=== PATIENT | male | born 1950 | race Caucasian/White ===

== ENCOUNTER 2018-12-13 15:12 | Emergency (ER) | payer MEDICARE, BC ==
[~2018-12-13] VITALS: Ht 172.7 cm; Wt 83.0 kg
[~2018-12-13 15:12] MED LIST: ANAS1TAB8 PO; ASPI-605 PO; EZET10TA14 PO; GABA600T PO; LAMO200T2 PO; LOVA40TA2 PO; MORP60TA4 PO; NEBI5TAB8 PO; NIAC500T5 PO; NITR0.4T48 SL; OXYC30TA2 PO; S-AD400T2 PO; TRAZ150T75 PO
--- NOTE | 2018-12-13 15:20 | NUR ---
RIB PAIN X 1WEEK; GLF X1 WEEK AGO. STATES PAIN LEVEL 5/10, PAIN "FEELS LIKE A BRUISE". PT IS AOX4, AMB, VSS, RR EVEN AND UNLABORED. SKIN INTACT. NO ACUTE DISTRESS NOTED. DENIES SOB, DIZZINESS, WEAKNESS, N/V. READY FOR EVAL.
--- NOTE | 2018-12-13 16:06 | NUR ---
XRAY AT BEDSIDE
--- NOTE | 2018-12-13 16:53 | NUR ---
Patient discharged to home in stable condition. Written and verbal after care instructions given. Patient verbalizes understanding of instruction.
[2018-12-13 16:56] VITALS: BP 110/78
== END 2018-12-13 16:56 | disposition home or self-care (01) ==
LOC: ER 15:16
DX: S22.32XA Fracture of one rib, left side, initial encounter for closed fracture (principal); I25.10 Atherosclerotic heart disease of native coronary artery without angina pectoris; F39 Unspecified mood [affective] disorder; Z85.46 Personal history of malignant neoplasm of prostate; Z98.890 Other specified postprocedural states; Z79.82 Long term (current) use of aspirin; W18.39XA Other fall on same level, initial encounter; Y93.89 Activity, other specified; Y92.89 Other specified places as the place of occurrence of the external cause; Y99.8 Other external cause status
CPT/HCPCS: 71100; 99283; A4606

== ENCOUNTER 2019-06-23 05:39 | Emergency (ER) | payer BC, MEDICARE ==
[~2019-06-23] VITALS: Ht 172.7 cm; Wt 83.9 kg
[~2019-06-23 05:39] MED LIST changes: -EZET10TA14 PO; +EZET10TA16 PO
--- NOTE | 2019-06-23 05:45 | NUR ---
BIB FAMILY FOR C/O DIZZINESS AND FEVER. - COUGH. - HEADACHE. - DYSURIA. PLACED ON A MONITOR.
[2019-06-23] MEDS ORDERED: METRONIDAZOLE 500MG/ NS 100ML 100 ML IV ONE (06:00)
[2019-06-23] MEDS ORDERED: CEFTRIAXONE 1GM BAG (ER ONLY) 50 ML IV ONE ×2 (06:00→06:12)
[2019-06-23] MEDS ORDERED: ONDANSETRON HCL/PF 4 MG/2 ML VIAL IVP ONE (06:00)
[2019-06-23] MEDS ORDERED: FAMOTIDINE/PF INJ 20 MG/2 ML VIAL IV ONE ×2 (06:00→06:28)
[2019-06-23] MEDS ORDERED: IV NS 0.9% 1,000 ML BAG IV ONE (06:00)
[2019-06-23] MEDS ORDERED: IV NS 0.9% 500 ML BAG IV ONE (06:00)
[2019-06-23] MEDS ORDERED: ONDANSETRON HCL/PF 4 MG/2 ML VIAL ONE (06:12)
[2019-06-23 06:15] LABS: BASOPHILS % (AUTO) 0.1 % (0.0-2.0); HEMATOCRIT 49 % (39-51); HEMOGLOBIN 16.4 g/dL (13.5-17.5); LYMPHOCYTES # (AUTO) 0.3 /CMM (0.8-4.8); LYMPHOCYTES % (AUTO) 5.3 % (20.0-44.0); MEAN CORPUSCULAR HGB CONC 34 g/dl (31.0-36.0); MEAN CORPUSCULAR VOLUME 94 fL (80-96); MONOCYTES # (AUTO) 0.2 /CMM (0.1-1.30); MONOCYTES % (AUTO) 4.1 % (2.0-12.0); NEUTROPHILS # (AUTO) 4.4 /CMM (1.8-8.9); NEUTROPHILS % (AUTO) 89.5 % (43.0-81.0); PLATELET COUNT (AUTO) 160 /CMM (150-450); RED BLOOD CELL COUNT(AUTO) 5.18 MIL/uL (4.5-6.0); WHITE BLOOD COUNT (AUTO) 4.9 K/uL (4.3-11.0)
[2019-06-23 06:23] LABS: CALCIUM, SERUM 8.8 mg/dL (8.5-10.1); CREATININE 1.3 mg/dL (0.6-1.3); POTASSIUM 4.1 mmol/L (3.5-5.1)
[2019-06-23 06:27] LABS: ALBUMIN 3.6 g/dL (3.4-5.0); BILIRUBIN,DIRECT 0.1 mg/dL (0.0-0.2); BILIRUBIN,TOTAL 0.6 mg/dL (0.2-1.0); TOTAL PROTEIN, SERUM 6.9 g/dL (6.4-8.2)
[2019-06-23] MEDS ORDERED: ACETAMINOPHEN ES 500 MG TABLET ONE (06:58)
[2019-06-23] MEDS ORDERED: ACETAMINOPHEN ES 500 MG TABLET PO ONE (07:00)
--- NOTE | 2019-06-23 07:12 | NUR ---
urine collected and sent to lab
[2019-06-23 07:17] LABS: BILIRUBIN,URINE Negative (NEGATIVE); BLOOD, URINE Trace-intact Ery/uL (NEGATIVE); COLOR,URINE Yellow (YELLOW); KETONES,URINE Negative (NEGATIVE); LEUKOCYTE ESTERASE ,URINE Negative (NEGATIVE); NITRITE, URINE Negative (NEGATIVE); PH,URINE 7.5 (5.0-8.0); PROTEIN,URINE Negative (NEGATIVE); UGLUCOSE Negative (NEGATIVE)
[2019-06-23 07:18] LABS: APPEARANCE,URINE Slightly Hazy (CLEAR)
[2019-06-23 07:24] LABS: BACTERIA,URINE None seen /HPF (None Seen); SQUAMOUS EPITHELIAL CELL,UR Rare /HPF (None Seen); WBC,URINE 0-2 /HPF (0-3)
--- NOTE | 2019-06-23 07:25 | NUR ---
TESS 15MIN.
--- NOTE | 2019-06-23 07:25 | NUR ---
REPORT REEIVED FROM LAURA VERNON FOR GOMEZ.
--- NOTE | 2019-06-23 08:01 | NUR ---
IV removed. Catheter intact and site benign. Pressure and 4x4 applied to site. No bleeding noted.Patient discharged to home in stable condition. Written and verbal after care instructions given. Patient verbalizes understanding of instruction.
[2019-06-23 08:10] VITALS: BP 128/68
== END 2019-06-23 08:01 | disposition home or self-care (01) ==
LOC: ER 05:40
DX: K52.9 Noninfective gastroenteritis and colitis, unspecified (principal); R42 Dizziness and giddiness; I25.10 Atherosclerotic heart disease of native coronary artery without angina pectoris; I25.2 Old myocardial infarction; G89.29 Other chronic pain; M54.9 Dorsalgia, unspecified; F32.9 Major depressive disorder, single episode, unspecified; Z85.46 Personal history of malignant neoplasm of prostate; Z98.890 Other specified postprocedural states; Z95.5 Presence of coronary angioplasty implant and graft; Z79.82 Long term (current) use of aspirin
CPT/HCPCS: 36415; 80048; 80076; 81001; 83605; 83690; 85025; 87040; 87086; 96365; 96375; 99283; J0696; J2405; J3490; J7030; J7040; 81000-TC

== ENCOUNTER 2019-09-24 16:44 | Emergency (ER) | payer BC, MEDICARE ==
[~2019-09-24] VITALS: Ht 172.7 cm; Wt 81.6 kg
[2019-09-24 17:04] VITALS: BP 125/79
[2019-09-24] MEDS ORDERED: HYDROCODONE/APAP 5/325MG 1 EACH TABLET PO ONE (17:30)
[2019-09-24] MEDS ORDERED: HYDROCODONE/APAP 5/325MG 1 EACH TABLET ONE (17:38)
--- NOTE | 2019-09-24 17:52 | NUR ---
Patient discharged to home in stable condition. Written and verbal after care instructions given. Patient verbalizes understanding of instruction.
--- NOTE | 2019-09-24 17:52 | NUR ---
PATIENT REFUSED X-RAY AND MEDICATION. DR. CORTEZ MADE AWARE. EXPLAINED RISKS AND BENEFITS, STILL REFUSED, PER PATIENT HE HAS AN APPOINTMENT WITH HIS PRIMARY MD.
--- NOTE | 2019-09-24 18:00 | NUR ---
Patient refused to wait and sign the discharge paperworks. Dr. Cuellar explained discharge instructions and patient verbalized understanding. Left in stable conditon.
== END 2019-09-24 18:24 | disposition home or self-care (01) ==
LOC: ER 16:44
DX: M54.6 Pain in thoracic spine (principal); R07.81 Pleurodynia; I48.91 Unspecified atrial fibrillation; I25.10 Atherosclerotic heart disease of native coronary artery without angina pectoris; I25.2 Old myocardial infarction; G89.29 Other chronic pain; F32.9 Major depressive disorder, single episode, unspecified; Z98.890 Other specified postprocedural states; Z79.82 Long term (current) use of aspirin; Z79.899 Other long term (current) drug therapy

== ENCOUNTER 2020-08-20 18:28 | Emergency (ER) | payer MEDICARE ==
[~2020-08-20] VITALS: Ht 170.2 cm; Wt 74.8 kg
[~2020-08-20 18:28] MED LIST changes: -NIAC500T5 PO; +[UNRECOGNIZED DRUG - CODE] PO
[2020-08-20 18:40] VITALS: BP 154/84
--- NOTE | 2020-08-20 20:05 | NUR ---
PT WAS GIVEN WATER PER DR. HOLGUIN'S ORDER, PT ABLE TO SWALLOW WATER WITHOUT DIFFICULTY. PT LEFT CAN'T WAIT FOR AFTER CARE INSTRUCTIONS. DR. HOLGUIN MADE AWARE.
== END 2020-08-20 20:09 | disposition home or self-care (01) ==
LOC: ER 18:30
DX: K22.2 Esophageal obstruction (principal); R11.10 Vomiting, unspecified; I25.10 Atherosclerotic heart disease of native coronary artery without angina pectoris; I25.2 Old myocardial infarction; G89.29 Other chronic pain; M54.9 Dorsalgia, unspecified; Z85.46 Personal history of malignant neoplasm of prostate; Z95.5 Presence of coronary angioplasty implant and graft; Z98.890 Other specified postprocedural states; Z79.82 Long term (current) use of aspirin; Z79.899 Other long term (current) drug therapy

== ENCOUNTER 2025-06-10 09:16 | Inpatient (IN) | payer MEDICARE, BC ==
[~2025-06-10] VITALS: Ht 170.2 cm; Wt 88.0 kg
[~2025-06-10 09:16] MED LIST changes: -S-AD400T2 PO; +S-AD400T6 PO
[2025-06-10 09:42] LABS: PLATELET COUNT (AUTO) 218 K/uL (150-450); RED BLOOD CELL COUNT(AUTO) 5.32 MIL/uL (4.5-6.0); RED CELL DISTRIBUTION WIDTH 16.5 % (11.5-15.0); WHITE BLOOD COUNT (AUTO) 7.5 K/uL (4.3-11.0)
[2025-06-10 09:50] LABS: CALCIUM, SERUM 9.0 mg/dL (8.5-10.1); CREATININE 1.6 mg/dL (0.6-1.3); SODIUM SERUM 140 mmol/L (136-145); UREA NITROGEN, BLOOD 20 mg/dL (7-18)
[2025-06-10 09:56] LABS: ASPARTATE AMINOTRANSFERASE 42 U/L (15-37); TOTAL PROTEIN, SERUM 6.8 g/dL (6.4-8.2)
[2025-06-10 11:00] VITALS: BP 123/77; TEMP 97.7; O2SAT 98
[2025-06-10] MEDS: APIXABAN 5 MG TABLET PO SCH (11:00)
[2025-06-10] MEDS ORDERED: ACETAMINOPHEN 325 MG TABLET PO PRN (11:00)
[2025-06-10] MEDS ORDERED: ONDANSETRON HCL/PF 4 MG/2 ML VIAL IVP PRN (11:00)
[2025-06-10] MEDS ORDERED: Z GUARD REMEDY 4 OZ OINT TP PRN (11:00)
[2025-06-10] MEDS ORDERED: PREG75CA PO (11:12)
[2025-06-10] MEDS ORDERED: APIX5TAB PO (11:12)
[2025-06-10] MEDS ORDERED: OXYC15TA2 PO (11:12)
[2025-06-10] MEDS ORDERED: TAMS-12 PO (11:12)
[2025-06-10] MEDS ORDERED: CLOP75TA15 PO (11:12)
[2025-06-10] MEDS ORDERED: EMPA10TA PO (11:12)
[2025-06-10 11:15] VITALS: BP 123/77; TEMP 97.7; O2SAT 98
[2025-06-10] MEDS ORDERED: IV LR 500 ML IV SCH (13:30)
[2025-06-10] MEDS: IV LR 1000 ML 1,000 ML IV SCH (15:10)
[2025-06-10] MEDS: ENOXAPARIN SODIUM 80 MG/0.8 ML DISP.SYRIN SQ SCH (15:15)
[2025-06-10 16:00] VITALS: BP 147/90; TEMP 98.2; O2SAT 98
[2025-06-10] MEDS ORDERED: CARVEDILOL 6.25 MG TABLET PO SCH (17:00)
[2025-06-10] MEDS: METOPROLOL TARTRATE 50 MG TABLET PO SCH (17:36)
[2025-06-10] MEDS: oxyCODONE IR immediate release 5 MG TABLET PO PRN (19:18)
[2025-06-10 20:00] VITALS: BP 137/79; TEMP 98.2; O2SAT 97
[2025-06-10] MEDS: TAMSULOSIN 0.4 MG CAP.SR.24H PO SCH (21:58)
[2025-06-10] MEDS: ATORVASTATIN 10 MG TABLET PO SCH (21:58)
[2025-06-10] MEDS: TRAZODONE 50 MG TABLET PO SCH (21:58)
[2025-06-11] VITALS: BP 146/97; TEMP 97.9; O2SAT 99
[2025-06-11 04:00] VITALS: BP 154/93; TEMP 98.9; O2SAT 99
[2025-06-11 06:51] LABS: PLATELET COUNT (AUTO) 202 K/uL (150-450); RED BLOOD CELL COUNT(AUTO) 5.42 MIL/uL (4.5-6.0); RED CELL DISTRIBUTION WIDTH 15.7 % (11.5-15.0); WHITE BLOOD COUNT (AUTO) 5.3 K/uL (4.3-11.0)
[2025-06-11 07:34] LABS: LDL 70.0 mg/dL (0-99)
[2025-06-11 08:00] VITALS: BP 114/74; TEMP 98.1; O2SAT 96
[2025-06-11 08:19] LABS: CALCIUM, SERUM 9.2 mg/dL (8.5-10.1); CREATININE 1.3 mg/dL (0.6-1.3); PHOSPHORUS 3.2 mg/dL (2.5-4.9); SODIUM SERUM 144.0 mmol/L (136-145); UREA NITROGEN, BLOOD 18.0 mg/dL (7-18)
[2025-06-11] MEDS: ASPIRIN EC 81 MG TABLET.DR PO SCH (09:59)
[2025-06-11] MEDS: EZETIMIBE 10 MG TABLET PO SCH (09:59)
[2025-06-11] MEDS: CLOPIDOGREL BISULFATE 75 MG TABLET PO SCH (09:59)
[2025-06-11 10:00] VITALS: BP 114/74
[2025-06-11] MEDS: AMIODARONE HCL 200 MG TABLET PO SCH (10:00)
[2025-06-11] MEDS: EMPAGLIFLOZIN 10 MG TABLET PO SCH (10:01)
== END 2025-06-11 11:50 | disposition home or self-care (01) | DRG 303 ==
LOC: ER 09:18 → UNDOADMIN 10:27 → TELE 10:27 → MED 06-11 11:47
PROVIDERS: ADMIT Nurse Practitioner Acute Care; ATTEND Nurse Practitioner Acute Care
DX: I25.10 Atherosclerotic heart disease of native coronary artery without angina pectoris (principal); I50.42 Chronic combined systolic (congestive) and diastolic (congestive) heart failure; D68.69 Other thrombophilia; N17.9 Acute kidney failure, unspecified; I48.91 Unspecified atrial fibrillation; Z95.5 Presence of coronary angioplasty implant and graft; E78.5 Hyperlipidemia, unspecified; Z79.01 Long term (current) use of anticoagulants; I25.2 Old myocardial infarction; G89.4 Chronic pain syndrome; Z85.46 Personal history of malignant neoplasm of prostate; Z96.82 Presence of neurostimulator; E83.9 Disorder of mineral metabolism, unspecified; M89.9 Disorder of bone, unspecified; N18.9 Chronic kidney disease, unspecified; Z79.82 Long term (current) use of aspirin
CPT/HCPCS: 36415; 71045-TC; 80048-TC; 80061-TC; 80076-TC; 83735-TC; 84100-TC; 84484-TC; 85025-TC; 93307-TC; A4223; G0378; J1650; J7060; J7120